=== PATIENT | male | born 1935 | race Caucasian/White ===

== ENCOUNTER 2017-01-03 10:01 | Outpatient (CLI) | payer MEDICARE, MEDICAID ==
--- NOTE | 2017-01-03 12:17 | ULT ---
THYROID ULTRASOUND: Date: 01-03-17 Comparison: None. History: 81-year-old male with decreasing thyroid hormone levels, nodule. Technique: Multiplanar grayscale sonographic imaging of the thyroid gland obtained. FINDINGS: The thyroid gland appears diffusely enlarged and heterogeneous in echotexture. The thyroid isthmus me asures 1.3 cm in AP dimension. The right lobe measures 5.1 x 2.2 x 3.8 cm and the left lobe measuring 4.9 x 3.1 x 3.9 cm. Incidental noted is made of a tiny hypoechoic nodule in the inferior aspect of the left lobe measurin g in the 5-6 mm range. No dominant thyroid nodule is evident. IMPRESSION: Enlarged heterogeneous thyroid gland with no dominant thyroid nodule seen. POS: [facility]
--- NOTE | 2017-01-03 12:48 | ULT ---
ABDOMINAL ULTRSOUND: Date: 01-03-17 Comparison: Renal ultrasound, 04-11-15 History: Renal cyst. Technique: Multiplanar grayscale sonographic imaging of the abdomen obtained. FINDINGS: The proximal abdominal aorta is obscured by bowel gas. The distal abdominal aorta demonstrates aneury smal dilatation measuring at least 4.0 cm in AP dimension. It is difficult to measure the infrarenal abdominal aorta in the transverse dimension secondary to tortuosity. The transverse dimension may be in the 5-6 cm range. Thus, CT examination is required for better assessment. Pancreas is obscured by bowel gas. The hepatic parenchyma is poorly assessed secondary to body habitus and bowel gas. Heterogeneity and increased echogenicity of the hepatic parenchyma suggests hepatocellular disease, such as steatosis. Common bile duct measures in the 5 mm range, within normal limits. The gallbladder appears surgically absent. The right kidney measures 8 cm in craniocaudal dimension, small. The renal cortex is thinned and echo genic suggesting renal medial disease. A faint hypoechoic area is seen in the midpole of the right ki dney which could represent a tiny cyst, poorly assessed on this exam. There is a questionable nonobstructing stone in the midpole of the right kidney measuring 8 mm. The spleen measures up to 10.5 cm, within normal limits. The left kidney measures 9.8 cm in craniocaudal dimension and demonstrates increased echogenicity and thinning of the cortex. There is an exophytic cyst emanating from the left midpole measuring up to 6 .0 x 6.2 x 5.3 cm, slightly smaller than on the prior examination at which time it measured up to 7.4 x 6.3 cm. Imaged urinary bladder appears grossly unremarkable. IMPRESSION: 1. Poorly assessed infrarenal abdominal aortic aneurysm. This could measure up to 5-6 cm, but the malka surement may be over-estimated secondary to tortuosity. Recommend CT examination of the abdomen and p tomasa using a CT angiogram protocol. 2. Exophytic cyst emanating from the left kidney. Code Flynn Arias made aware via phone by Dr. Simpson at 4pm 01/03/2017. POS: [facility]
== END 2017-01-03 10:02 | disposition home or self-care (01) ==
LOC: ULT 10:01
PROVIDERS: ATTEND Nurse Practitioner Family
DX: I71.4 Abdominal aortic aneurysm, without rupture (principal); R94.6 Abnormal results of thyroid function studies; N28.1 Cyst of kidney, acquired
CPT/HCPCS: 76536; 76700

== ENCOUNTER 2017-03-01 11:48 | Outpatient (CLI) | payer MEDICARE, MEDICAID | END 2017-03-01 11:49 | disposition home or self-care (01) | LOC: BICRAD 11:48 | PROVIDERS: ATTEND Internal Medicine Cardiovascular Disease | DX: J44.9 Chronic obstructive pulmonary disease, unspecified (principal); I70.90 Unspecified atherosclerosis | CPT/HCPCS: 71046 ==

== ENCOUNTER 2017-03-14 07:04 | Outpatient (CLI) | payer MEDICARE, MEDICAID ==
--- NOTE | 2017-03-14 11:54 | CT ---
CT ABDOMEN WITH AND WITHOUT CONTRAST CT PELVIS WITH AND WITHOUT CONTRAST: Date: 03/14/17 HISTORY: 81-year-old male with N20.0 calculus of kidney. Mid and lower abdominal pain. COMPARISON: Single phase CT abdomen and pelvis with contrast of 08/13/10. TECHNIQUE: IV contrast: 60 mL Isovue 370. The principal technologist performed this procedure in the following sequence, somewhat atypically: A nonco ntrast scan was initially performed without IV or oral contrast. Next, the IV contrast and oral contr ast were given, and a single venous phase scan was performed through the entire abdomen and pelvis. C oronal reconstructions of that postcontrast scan. FINDINGS: The previously demonstrated 3.0 cm aneurysm of the distal abdominal aorta has enlarged, currently malka suring 4.6 cm in anteroposterior dimension. The tortuosity of the distal abdominal aorta has become w orse such that the aortic bifurcation is located actually slightly superior and to the left, relative to the inferior, distal portion of the aneurysm. Furthermore, the degree of chronic mural thrombus h as significantly thickened within the abdominal aortic aneurysm. Again noted is the extensive, heavy atherosclerotic calcification of the entire abdominal aorta, and its branches, having become worse si nce the previous CT. Since no arterial phase scan was performed, it is difficult to evaluate the degr ee of stenosis involving these branches, including proximal common iliac arteries, bilateral proximal renal arteries, and origin of superior mesenteric artery, all of which have severe calcifications. 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 Again noted is the right hip replacement metallic hardware which causes severe streak artifact, parti ally obscuring the adjacent soft tissues and the intrapelvic contents, especially on the right side. This decreases the sensitivity for the detection of calculi in the urinary bladder and distal ureters . No definite calculus of the ureters or bladder is identified. There is no hydronephrosis. There are calcifications in the renal sinus bilaterally, at least most of which, and possibly all of which, re present atherosclerotic calcifications of branches of the bilateral renal arteries. The bilateral [place] al parenchyma has shrunk somewhat since the previous CT. There is no hydronephrosis. Again noted is t he large exophytic cyst distorting the left kidney, previously measuring 7.7 x 7.5 x 7.5 cm, and curr ently measuring approximately 6.5 x 7.0 x 6.0 cm. There is a small, exophytic, approximately 1 cm lincoln ghter cyst protruding posteriorly from the junction between the upper portion of this cyst and the le ft renal upper pole parenchyma, which has not significantly changed (axial image 41 of 98, series 4). Prior to oral contrast administration, the gastric oden appear diffusely low in attenuation, suggest ines of possible edema. Once the gastric lumen becomes more distended after oral contrast administrati on, the apparent mural thickening decreases, but the low attenuation of the oden persists. There is no gastric outlet obstruction. Previously, there was moderate dilation of the entire biliary tree due to a small obstructing lesion at the ampulla of Vater. That has resolved, such that there is current ly only mild dilation of the common duct, and minimal dilation of the intrahepatic biliary tree. Agai n noted are the cholecystectomy clips. The pancreas, spleen, and adrenals appear normal. There is a t iny amount of biliary gas in the left hepatic duct or one of its proximal branches. Again noted is th e fact that the right lobe of the liver is small. There is no hepatomegaly. The appendix and spleen a re normal. No abnormality of the small intestine is identified. No signs of acute colonic diverticuli tis or colitis. Multiple diverticula throughout the descending colon and sigmoid colon. No mural thic kening of the urinary bladder. No free fluid identified in the abdominal cavity or pelvic cavity. Wang g bases are grossly clear. There is multilevel severe degenerative disc disease through lumbar spine. IMPRESSION: 1. Interval growth of the distal abdominal aortic fusiform aneurysm, now 4.6 cm in anteroposterior d imension. 2. Interval worsening of atherosclerotic disease throughout the abdominal aorta and all of its branc hes. 3. Interval decrease in bilateral renal parenchymal volume. 4. Interval decrease in size of the previously large left renal cyst. 5. 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 6. Interval resolution of the previously demonstrated biliary obstruction. 7. Status post cholecystectomy. 8. Questionable diffuse gastric mural edema. 9. Distal colonic diverticulosis without acute diverticulitis. 10. No obstructive uropathy. 11. Advanced lumbar spondylosis. 12. Status post total right hip replacement arthroplasty. POS: [facility]
== END 2017-03-14 07:05 | disposition home or self-care (01) ==
LOC: SCSCT 07:04
PROVIDERS: ATTEND Internal Medicine Gastroenterology
DX: R10.11 Right upper quadrant pain (principal); N20.0 Calculus of kidney; I71.4 Abdominal aortic aneurysm, without rupture; I70.0 Atherosclerosis of aorta; N28.89 Other specified disorders of kidney and ureter; N28.1 Cyst of kidney, acquired; I72.3 Aneurysm of iliac artery; K83.1 Obstruction of bile duct; K57.30 Diverticulosis of large intestine without perforation or abscess without bleeding; M47.896 Other spondylosis, lumbar region; Z96.641 Presence of right artificial hip joint; Z90.49 Acquired absence of other specified parts of digestive tract
CPT/HCPCS: 74178

== ENCOUNTER 2017-12-25 08:31 | Day surgery (SDC) | payer MEDICARE, MEDICAID ==
[2017-12-24 10:01] VITALS: BMI 29.0
[2017-12-25] MEDS ORDERED: PHENYLEPHRINE-NS 100 MCG/ML 10 ML SYRINGE ONE (09:07)
[2017-12-25] MEDS ORDERED: Lidocaine 1% PF 5 ML VIAL ONE (09:07)
[2017-12-25] MEDS ORDERED: PROPOFOL 200 MG/20 ML VIAL ONE (09:07)
[2017-12-25 09:12] LABS: Hemoglobin 13.2 g/dL (14.0-18.0)
[2017-12-25 09:23] LABS: Anion Gap 11 mmol/L (10-20); BUN (Urea Nitrogen) 29 mg/dL (8.4-25.7); Calc. Creatinine Clearance 39 mL/min (70-130); Calcium 9.3 mg/dL (7.8-10.44); Carbon Dioxide 27 mmol/L (23-31); Chloride 102 mmol/L (98-107); Estimated GFR-MDRD 39; Glucose 137 mg/dL (83-110); Potassium 4.4 mmol/L (3.5-5.1); Sodium 136 mmol/L (136-145)
[2017-12-25] MEDS ORDERED: Bacitracin Zinc Ointment 30 gm TUBE ONE (10:26)
[2017-12-25] MEDS ORDERED: Lidocaine 1% w/Epinephrine 1:100K 30 ML VIAL ONE (10:26)
[2017-12-25] MEDS ORDERED: Fentanyl 100 MCG/2 ML VIAL ONE (10:37)
--- NOTE | 2017-12-25 12:45 | EKG ---
Test Reason : PREOP Blood Pressure : / mmHG Vent. Rate : 080 BPM Atrial Rate : 080 BPM P-R Int : 148 ms QRS Dur : 088 ms QT Int : 416 ms P-R-T Axes : 053 005 027 degrees QTc Int : 479 ms Normal sinus rhythm Nonspecific ST and T wave abnormality Prolonged QT Abnormal ECG When compared with ECG of 19-MAY-2015 23:56, QT has lengthened Confirmed by DR. Krysten MENSAH ([id number]) on 12/25/2017 12:44:59 PM Referred By: NIKHIL Confirmed By:DR. Krysten MENSAH
--- NOTE | 2017-12-26 11:34 | OP ---
DATE OF PROCEDURE: 12/25/2017 PREOPERATIVE DIAGNOSIS: Left face/left ear basal cell carcinoma. POSTOPERATIVE DIAGNOSIS: Left face/left ear basal cell carcinoma. PROCEDURES: Wide local excision of left face and ear basal cell carcinoma with local regional advanc ement flap greater than 4 cm. SURGEON: Brayan Gardner M.D. ESTIMATED BLOOD LOSS: 10 mL COMPLICATIONS: None. ANESTHESIA: TIVA. PROCEDURE IN DETAIL: The patient was taken to the operating room. IV anesthesia was obtained by the Anesthesia staff. Lidocaine 1% with 1:100,000 epinephrine was injected into the anticipated areas. Following this, the patient was prepped for standard procedures. A 1 cm margin was taken around the left preauricular skin basal cell carcinoma. Frozen sections were sent for pathological analysis, [facility] no involvement of malignancy. Following this, skin flap was elevated superiorly overlyin g the parotid gland and the skin was then advanced posteriorly to the remnant skin of the ear tragus. The wound was then closed using Monocryl stitches and Prolene stitches for the skin. The patient t olerated the procedure well.
--- NOTE | 2017-12-31 05:32 | PQF ---
[facility] POST DISCHARGE CLINICAL DOCUMENTATION IMPROVEMENT CLARIFICATION FORM l Todays Date: 12/31/17 l Patients Name JULIOCESAR MAYS l l Admit Date 12/25/17 l Disch Date 12/25/17 Telex Operator Name Terrell Moore Email: [email or web address] Cell: [phone] To be completed by Telex Operator: Present Clinical Indicators - Signs / Symptoms Results and Location in Medical Record [ ] Documentation of: [ ] [ ] Documentation of: [ ] [ ] Documentation of: [ ] [ ] Documentation of: [ ] [ ] Risks [ ] [ ] [ ] Treatment [ ] BASAL CELL CARCINOMA OF LEFT EAR Query for area (sq cm) of advancement flap [ ] [ ] To be completed by Physician: DELIA FREGOSO The documentation in this patients record requires clarification to ensure coding compliance and accuracy. Check the appropriate box and include in your discharge summary. [ ] [ ] [ ] [ ] Please check this box if this does not apply to this patient [ ] Unable to determine [ ] Other diagnosis: Review the following information and exercise your independent professional judgment in responding to the clarification. Based upon the clinical findings, risk factors, and treatment, please clarify if you are treating one of the above probable or suspected diagnoses. Physician Signature: Date Time MTDD
== END 2017-12-25 15:15 | disposition home or self-care (01) ==
LOC: SDC 08:31
PROVIDERS: ATTEND Otolaryngology Plastic Surgery within the Head & Neck
PROC: 0HX3XZZ Transfer Left Ear Skin, External Approach (ICD-10-PCS; principal; 2017-12-25)
PROC: 0HB3XZZ Excision of Left Ear Skin, External Approach (ICD-10-PCS; 2017-12-25)
DX: C44.219 Basal cell carcinoma of skin of left ear and external auricular canal (principal); L57.0 Actinic keratosis; L57.8 Other skin changes due to chronic exposure to nonionizing radiation; J44.9 Chronic obstructive pulmonary disease, unspecified; M16.10 Unilateral primary osteoarthritis, unspecified hip; I12.9 Hypertensive chronic kidney disease with stage 1 through stage 4 chronic kidney disease, or unspecified chronic kidney disease; N18.9 Chronic kidney disease, unspecified; I48.91 Unspecified atrial fibrillation; I48.92 Unspecified atrial flutter; G47.30 Sleep apnea, unspecified; G89.29 Other chronic pain; M54.9 Dorsalgia, unspecified; E05.00 Thyrotoxicosis with diffuse goiter without thyrotoxic crisis or storm; Z87.891 Personal history of nicotine dependence; Z86.73 Personal history of transient ischemic attack (TIA), and cerebral infarction without residual deficits; Z79.51 Long term (current) use of inhaled steroids; Z79.82 Long term (current) use of aspirin; Z79.899 Other long term (current) drug therapy
CPT/HCPCS: 36415; 80048; 85014; 85018; 88305; 88331; 93005; 93010; J2001; J2704; J3010

== ENCOUNTER 2018-04-29 07:45 | Outpatient (CLI) | payer MEDICARE, MEDICAID | END 2018-04-29 07:46 | disposition home or self-care (01) | LOC: CP 07:45 | PROVIDERS: ATTEND Nurse Practitioner Family | DX: J44.9 Chronic obstructive pulmonary disease, unspecified (principal) | CPT/HCPCS: 94060; 94727 ==

== ENCOUNTER 2018-05-30 10:11 | Outpatient (CLI) | payer MEDICARE, MEDICAID ==
--- NOTE | 2018-05-30 10:33 | RAD ---
Exam: Chest 2 views COMPARISON: 05/19/2015, 03/07/2015 HISTORY: Dyspnea FINDINGS: Atherosclerosis and slight elongation of the aorta. Cardiac silhouette. Pulmonary vessels a nd hilum are normal. Costophrenic angles are clear. Hyperinflation, with chronic changes. No mass. No consolidation. No pneumothorax or osseous abnormalities. IMPRESSION: 1. Atherosclerosis. 2. Hyperinflation with chronic changes.
== END 2018-05-30 10:12 | disposition home or self-care (01) ==
LOC: RAD 10:11
PROVIDERS: ATTEND Internal Medicine Pulmonary Disease
DX: R06.00 Dyspnea, unspecified (principal); I70.0 Atherosclerosis of aorta
CPT/HCPCS: 71046

== ENCOUNTER 2019-02-20 11:34 | Inpatient (IN) | payer MEDICARE, MEDICAID ==
[2019-02-20] MEDS ORDERED: Albuterol Sulfate 2.5 mg/3 ml Neb ONE (11:59)
[2019-02-20] MEDS ORDERED: Magnesium 2 GM/50 ML BAG (IN WATER) ONE (12:16)
[2019-02-20] MEDS ORDERED: Dexamethasone 10 MG/ML VIAL ONE (12:17)
--- NOTE | 2019-02-20 12:20 | RAD ---
EXAM: XR Chest 1 View Portable PROVIDED CLINICAL HISTORY: Shortness of breath COMPARISON: 05/30/2018 FINDINGS: Cardiac and mediastinal silhouette is within normal limits. Vascular calcification is noted involving the aortic arch. There is conspicuous left hemithoracic patchy airspace disease. Right lung appears clear. There is no pleural fluid or pneumothorax apparent. IMPRESSION: Conspicuous patchy left hemithoracic airspace disease, compatible with pneumonia in the appropriate c linical context. Follow-up is recommended.
[2019-02-20 12:25] LABS: Actual Bicarbonate (HCO3a) 19.5 mEq/L (22-28); Analyzer IN Cardio ER; CO2 Tension 28.2 mmHg (35.0-45.0); Calcium, Ionized 1.18 mmol/L (1.12-1.30); Carboxyhemoglobin (COHb) 0.9 gm% (0.0-3.0); Hemoglobin (Hb) 14.2 g/dL (14.0-18.0); Potassium - ABG Lab 3.85 mmol/L (3.70-5.30); pH, Arterial 7.46 (7.35-7.45)
[2019-02-20 12:26] LABS: Puncture Site RRA
[2019-02-20] MEDS ORDERED: cefTRIAXone\\ROCEPHIN 2 GM VIAL ONE (12:38)
[2019-02-20 13:24] LABS: Hemoglobin 14.1 g/dL (14.0-18.0); Mean Corpuscular HGB CONC 32.7 g/dL (32.0-36.0); Mean Platelet Volume 9.2 fL (7.4-10.4); Platelet Count 190 thou/uL (130-400); RBC Distribution Width 13.3 % (11.5-14.5); White Blood Cell (WBC) Count 14.6 thou/uL (4.8-10.8)
[2019-02-20 13:42] LABS: Bacteria/HPF 2+ HPF (None Seen); Bilirubin Negative (Negative); Blood, Urine Trace (Negative); Clarity Turbid (Clear); Glucose, Urine (Dipstick) Normal (Negative); Leukocyte Negative Leu/uL (Negative); Nitrite Negative (Negative); Protein, Urine (Dipstick) 100 mg/dL (Neg-Trace); Squamous Epithelial 0-3 HPF (0-3)
[2019-02-20 13:52] LABS: ALT (SGPT) 28 U/L (8-55); AST (SGOT) 26 U/L (5-34); Alkaline Phosphatase 179 U/L (40-110); Anion Gap 18 mmol/L (10-20); BUN (Urea Nitrogen) 42 mg/dL (8.4-25.7); Bilirubin, Total 2.9 mg/dL (0.2-1.2); CK (CPK) 552 U/L (30-200); Calc. Creatinine Clearance 0 mL/min (70-130); Calcium 9.9 mg/dL (7.8-10.44); Carbon Dioxide 24 mmol/L (23-31); Chloride 99 mmol/L (98-107); Estimated GFR-MDRD 24; Globulin 3.2 g/dL (2.4-3.5); Glucose 162 mg/dL (83-110); Lipase 156 U/L (8-78); Potassium 3.8 mmol/L (3.5-5.1); Protein, Total 7.2 g/dL (5.8-8.1); Sodium 137 mmol/L (136-145)
[2019-02-20] MEDS ORDERED: Norepinephrine 8 MG/0.9% NS 250 ML ONE (14:02)
[2019-02-20 14:10] LABS: CKMB 2.2 ng/mL (0-6.6)
[2019-02-20 14:13] LABS: Band 18 % (5-11); Lymphocytes 6 % (21-51); MDiff Complete? YES; Metamyelocyte 1 % (0-0); Monocytes 3 % (0-10); Neutrophil 72 % (42-75); RBC Morphology Normal
[2019-02-20] MEDS ORDERED: Aspirin 300 MG Suppository ONE (14:27)
--- NOTE | 2019-02-20 15:55 | RAD ---
XR Chest 1 View Portable History: Central line placement Comparison: Radiograph same day Findings: New right IJ central venous catheter is in place with tip at the mid SVC. No complication. Remainder the findings are similar. Impression: Uncomplicated placement right IJ central venous catheter.
[2019-02-20 16:20] LABS: INR-International Normal Ratio 1.5; Prothrombin Time 18.1 SEC (12.0-14.7)
[2019-02-20 16:21] LABS: PTT 37.8 SEC (22.9-36.1)
--- NOTE | 2019-02-20 16:22 | HP ---
HISTORY OF PRESENT ILLNESS: Mr. Grant is an 83-year-old man. He was brought to the ER earlier today because of failure to thrive, poor appetite, and increasing shortness of breath for the last 2 weeks or so. He was evaluated and was found to have pneumonia, hypotension, respiratory failure, and sepsis. He has been admitted for management. There is no fever documented. Family denies any previous fever. PAST MEDICAL HISTORY: Remarkable for hypertension and chronic kidney disease, we do not know his baseline kidney function. He has cardiomyopathy, atrial fibrillation, and COPD. PAST SURGICAL HISTORY: Remarkable for skin cancer excision, cholecystectomy, and right hip replacement. He had previous skin graft. ALLERGIES: HE DOES NOT HAVE ANY KNOWN ALLERGY. SOCIAL HISTORY: He is a former smoker. There is no history of EtOH abuse. No history of substance abuse. FAMILY HISTORY: Reviewed and is not contributory. HOME MEDICATIONS: Include: 1. Aspirin 81 mg daily. 2. Methimazole. REVIEW OF SYSTEMS: CONSTITUTIONAL: Generalized weakness, failure to thrive, poor appetite. HEENT: No headache. No ocular pain. No sore throat. No rhinorrhea. No earache. No epistaxis. NECK: No neck pain. No neck stiffness. CARDIOVASCULAR: Shortness of breath. There is no chest pain. PULMONARY: Shortness of breath along with dry cough. ENDOCRINOLOGY: No heat or cold intolerance. No polyuria, polydipsia, or polyphagia. HEMATOLOGY: No abnormal bleeding. No ecchymosis. LYMPHATICS: No palpable lymphadenopathy. No painful lymphadenopathy. SKIN: No rash. No itching. ALLERGY: No hay fever. NEUROLOGIC: No seizure. PSYCHIATRIC: No anxiety. No depression. MUSCULOSKELETAL: No arthralgia. GENITOURINARY: No dysuria. No hematuria. GASTROINTESTINAL: There is no nausea. No vomiting. No diarrhea. No abdominal pain. PHYSICAL EXAMINATION: GENERAL: At the current time, he is alert, responsive, and cooperative. He is in severe respiratory distress, currently on BiPAP. VITAL SIGNS: His latest vital signs show a temperature of 98.3, pulse rate 112, respiratory rate 34, blood pressure 99/57. HEENT: His head is normocephalic and atraumatic. Both his pupils are equal and reactive. Ears and nose are normal. Oral mucosa, he is currently on BiPAP. NECK: Supple. There is no distention of the jugular vein. No lymphadenopathy felt. Thyroid gland not palpable. There is no carotid bruit. CHEST: Symmetrical with regular S1 and S2. LUNGS: Show some rhonchi and wheezing diffusely. ABDOMEN: Soft. Bowel sounds heard. We could not appreciate any organomegaly. EXTREMITIES: Limbs show no edema. NEUROLOGIC: He moves all extremities. LABORATORY DATA: CBC shows a WBC of 14.6, hemoglobin of 14.1, hematocrit of 43.1, MCV of 98, platelet of 190. ABG was reviewed. The patient was noticed to have a pH of 7.46, pCO2 of 28, pO2 of 53, O2 saturation of 90%, base excess of -3. Chemistry and lytes show a sodium of 137, potassium 3.8, chloride 99, CO2 of 24, BUN 42, creatinine 2.54, glucose 162, lactic acid 3.6, total bilirubin 2.9, alkaline phosphatase 179, AST 26, ALT 28. Troponin was noticed to be elevated at 0.18. BNP is 387. Urinalysis was reviewed. Chest x-ray showed possible left-sided pneumonia. ASSESSMENT: This is an 83-year-old man with history of hypertension, chronic atrial fibrillation, chronic obstructive pulmonary disease, cardiomyopathy, and chronic kidney disease, who is being admitted with respiratory failure along with sepsis. Respiratory failure is due to pneumonia along with chronic obstructive pulmonary disease exacerbation. The patient will be admitted to medical ICU. Please see orders. He was noticed to have lactic acidosis. Lactic acid level will be repeated in 4 hours. He will be admitted to ICU. Further evaluation and management will depend on the course of this hospitalization and his response to therapy. Job ID: [id number]
[2019-02-20 16:41] LABS: Troponin I 0.106 ng/mL (< 0.028)
[2019-02-20] MEDS ORDERED: Heparin 10,000 UNITS/ 10 ML VIAL SLOW IVP SCH (16:45)
[2019-02-20] MEDS ORDERED: Heparin 25,000 units/D5W 500 ML IVPB SCH (16:45)
[2019-02-20] MEDS ORDERED: cefTRIAXone Sodium 1,000 MG in Syringe 0 ML IVPB SCH (17:15)
[2019-02-20 17:31] LABS: Hemoglobin 12.1 g/dL (14.0-18.0); Platelet Count 187 thou/uL (130-400)
[2019-02-20 17:46] LABS: Lactic Acid 3.8 mmol/L (0.5-2.2)
[2019-02-20] MEDS: Sodium Chloride 0.9% 1,000 ML IV SCH ×2 (17:56→20:10)
[2019-02-20] MEDS: Budesonide 0.25 MG/2 ML NEB INH SCH (18:22)
--- NOTE | 2019-02-20 18:41 | ULT ---
ULTRASOUND ABDOMEN: 02/20/19 HISTORY: Kidney failure. FINDINGS: The liver demonstrates homogeneous echotexture without focal mass or abnormal biliary ductal dilatati on. The spleen is normal measuring 9.7 cm in length. The patient is post cholecystectomy. The common duct measures 6 mm in diameter. The visualized portions of the pancreas are unremarkable. The proxima l and mid portions of abdominal aorta are not well seen. The distal aspect of the abdominal aorta dem onstrates an aneurysm measuring 5 cm in AP dimension. No hydronephrosis is seen on either side. There is a 6.6 cm cyst arising from the left kidney. The visualized portions of the IVC are unremarkable. No free fluid is seen. IMPRESSION: 1. Left renal cyst. 2. 5 cm infrarenal abdominal aortic aneurysm. POS: [facility]
[2019-02-20] MEDS ORDERED: Enoxaparin Sodium 80 MG/0.8 ML SYRINGE SC SCH (18:45)
[2019-02-20 19:03] LABS: Troponin I 0.148 ng/mL (< 0.028)
[2019-02-21] MEDS: Sodium Chloride 0.9% 1,000 ML IV SCH (05:18)
[2019-02-21 06:16] VITALS: BMI 32.6
[2019-02-21] MEDS: Budesonide 0.25 MG/2 ML NEB INH SCH ×2 (07:54→19:25)
[2019-02-21] MEDS ORDERED: FLU VACC TS2019-20(65YR UP)/PF 180 MCG/0.5 ML SYRINGE IM ONE (09:00)
[2019-02-21] MEDS ORDERED: methylPREDNISolone Sod Succ/PF 125 MG/2 ML VIAL IVP SCH (09:00)
[2019-02-21] MEDS ORDERED: Enoxaparin Sodium 30 MG/0.3 ML SYRINGE SC SCH (09:00)
[2019-02-21] MEDS ORDERED: Prevnar 13-Val Conj/PF 0.5 ML SYRINGE IM ONE (09:00)
--- NOTE | 2019-02-21 10:45 | CON ---
DATE OF CONSULTATION: HISTORY OF PRESENT ILLNESS: Mr. Grant is an 83-year-old Monegasque male with known history of chronic renal failure and was admitted for generalized malaise and low-grade fever. Chest x-ray suggested to have pneumonia. For this reason, he is being admitted. We are now being consulted for his chronic renal failure. His most recent creatinine was noted to be at 2.54, his baseline is about 1.6. He did have decreased p.o. intake. Consideration for prerenal azotemia remains. REVIEW OF SYSTEMS: Positive for low-grade fever. Positive for a cough. No chest pain. Mild shortness of breath. No syncopal episode. No nausea. No vomiting. No diarrhea. No constipation. No headache. Appetite and energy level have decreased. Decreased p.o. intake. No dysuria. MEDICATIONS: Currently on; 1. Ceftriaxone 1 g IV daily. 2. Budesonide neb treatment as needed. 3. Lovenox 30 mg subcu daily. 4. DuoNeb q.4 as needed. 5. Levaquin 750 mg IV every other day. 6. Methylprednisolone 80 mg IV daily. 7. Normal saline 100 mL/h. 8. Vancomycin p.r.n. PAST MEDICAL HISTORY: Chronic renal failure, history of atrial flutter, history of CHF with decreased EF, hyperlipidemia, COPD, DJD, status post TIA. PAST SURGICAL HISTORY: Status post right groin pseudoaneurysm repair, status post right heart ablation, status post AICD/pacemaker placement, status post cardiac cath, status post right hip replacement, status post cholecystectomy, status post colonoscopy. SOCIAL HISTORY: The patient lives alone, lives in [place]. 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 Has two children. He is currently. No history of smoking. No alcohol intake. No IV drug abuse. ALLERGIES: NONE. TRAUMA: None. IMMUNIZATION: Up-to-date. HOSPITALIZATIONS: Please see past medical history. FAMILY HISTORY: No family history of ESRD. PHYSICAL EXAMINATION: VITAL SIGNS: Blood pressure is noted at 113/61, heart rate 96, respiratory rate 33, O2 saturation 97%. GENERAL: The patient is awake, comfortable, not in overt distress. SKIN: Adequate turgor. HEENT: Pinkish conjunctivae. Anicteric sclerae. NECK: No neck mass. No carotid bruits. No JVD. CHEST: No deformities. LUNGS: Right, clear breath sounds. Left, harsh breath sounds. HEART: Normal sinus rhythm. No murmur. No gallops. No rubs. ABDOMEN: Globular, soft, and nontender. No masses. EXTREMITIES: No edema. NEUROLOGIC: Awake and oriented to 3 spheres. Moving all extremities. No tremors. No asterixis. No ataxia. LABORATORY DATA: Chest x-ray shows pneumonia. No evidence of CHF. Right lung is clear. On February 20, 2019; hemoglobin 12.1, white count was 14.6. On February 20, 2019; sodium 137, potassium 3.8, chloride 99, carbon dioxide 24, BUN 42, creatinine 2.54. On April 22, 2018, creatinine 2.11. Lactic acid is 3.6. BNP is 387. Troponin-I 0.1. Urinalysis shows specific gravity 1.019, rbc's 4 to 6, wbc's 4 to 6, no pigmented granular casts noted. ASSESSMENT AND PLAN: 1. Acute kidney injury on top of his chronic renal failure - I suspect with the decreased p.o. intake and relatively benign urine sediment that he may have a hemodynamically-mediated renal dysfunction. Agree with empiric volume repletion, currently normal saline at 100 mL/h. 2. Pneumonia, on empiric antibiotics. Currently, on Levaquin, ceftriaxone, and vancomycin. Continue supportive care. There is no indication for any dialytic intervention with this patient. Agree with current management. Job ID: [id number]
[2019-02-21] MEDS: cefTRIAXone\\ROCEPHIN 1 GM in Sodium Chloride 0.9% 100 ML IVPB SCH (11:26)
--- NOTE | 2019-02-21 12:04 | PDOC.HOSPP ---
- Subjective Encounter Date: 02/21/19 Encounter Time: 11:50 Subjective: Feels better.. - Objective Vital Signs & Weight: Vital Signs (12 hours) Temp Pulse Resp Pulse Ox 02/21/19 10:35 86 26 H 96 02/21/19 08:00 97.9 F 100 02/21/19 07:54 99 02/21/19 07:52 90 30 H 98 Weight Weight 190 lb 4.8 oz Most Recent Monitor Data Heart Rate from ECG 89 NIBP 131/62 NIBP BP-Mean 85 Respiration from ECG 33 SpO2 99 I&O: 02/20/19 02/21/19 02/22/19 06:59 06:59 06:59 Intake Total 3654 240 Output Total 900 0 Balance 2754 240 Result Diagrams: 02/20/19 17:22 02/20/19 11:53 Hospitalist ROS - Medication Medications: Active Medications Generic Name Dose Route Start Last Admin Trade Name Freq PRN Reason Stop Dose Admin Budesonide 0.25 mg 02/20/19 18:30 02/21/19 07:54 Pulmicort Neb Solution INH 0.25 mg BID-RT ARIANA Administration Ceftriaxone Sodium 1 gm/ 100 mls @ 200 mls/hr 02/21/19 12:00 02/21/19 11:26 Sodium Chloride IVPB 100 mls 1200 ARIANA Administration - Exam Neck: no JVD Heart: irregular Respiratory: rhonchi Gastrointestinal: soft Extremities: no edema Neurological: no weakness Psychiatric: normal affect Hosp A/P (1) CKD (chronic kidney disease) Code(s): N18.9 - CHRONIC KIDNEY DISEASE, UNSPECIFIED Status: Acute (2) Sepsis Code(s): A41.9 - SEPSIS, UNSPECIFIED ORGANISM Status: Acute (3) Respiratory failure Code(s): J96.90 - RESPIRATORY FAILURE, UNSP, UNSP W HYPOXIA OR HYPERCAPNIA Status: Acute (4) Atrial fibrillation Code(s): I48.91 - UNSPECIFIED ATRIAL FIBRILLATION Status: Acute (5) COPD (chronic obstructive pulmonary disease) Status: Chronic (6) Cardiomyopathy Code(s): I42.9 - CARDIOMYOPATHY, UNSPECIFIED Status: Chronic - Plan Continue antibiotics, bronchodilators, steroids.. f/u blood cultures..
[2019-02-21] MEDS ORDERED: Vancomycin HCl 1 GM in Premix Bag 1 BAG IVPB SCH (15:00)
[2019-02-21] MEDS: Heparin 5,000 UNITS/ML VIAL SC SCH ×2 (15:20→23:26)
--- NOTE | 2019-02-21 15:49 | CON ---
DATE OF CONSULTATION: 02/21/2019 SERVICE: Pulmonary Medicine. REASON FOR CONSULT: ICU patient. HISTORY OF PRESENT ILLNESS: The patient is an 83-year-old white male with past medical history significant for chronic kidney disease. He had a 5-day history of decreased appetite, nausea, no urine output, and no bowel movement. Ultimately, because of his weakness, he presented to the emergency department. He was discovered to have hypotension and given a couple of liters of fluid. He developed significant respiratory failure. He was placed on BiPAP, but based on the ABG, it is suggested that he had pure hypoxemic failure and we converted him over to high-flow nasal cannula. He was having fevers and chills. That being said, overnight, he feels profoundly better. His high-flow nasal cannula has been weaned away to just regular nasal cannula. His appetite has improved dramatically, and his blood pressures have firmed up beautifully. Otherwise, he feels like he is returning closer to his usual state of health. PAST MEDICAL HISTORY: 1. Chronic kidney disease. 2. Hypertension. 3. Cardiomyopathy. 4. Atrial fibrillation. 5. COPD. PAST SURGICAL HISTORY: 1. Excision of skin cancer. 2. Cholecystectomy. 3. Right hip replacement. 4. History of skin graft. ALLERGIES: NO KNOWN DRUG ALLERGIES. MEDICATIONS: List of his inpatient medications was reviewed. No specific updates were made at this time. SOCIAL HISTORY: He has a greater than 50 pack-year history of smoking, but quit remotely. He has no alcohol or illicit drug use. He has no exposure to chemicals, dust, asbestos, or tuberculosis. FAMILY HISTORY: Noncontributory. REVIEW OF SYSTEMS: General, head, ears, eyes, nose, throat, cardiovascular, respiratory, GI, , musculoskeletal, neurologic, and skin are negative except as mentioned in HPI. PHYSICAL EXAMINATION: VITAL SIGNS: Currently, afebrile. He did not have any temperatures overnight. Pulse 86, blood pressure 131/62, respirations 14, saturation 99% on 3 L nasal cannula currently. GENERAL: The patient is awake and alert, in no apparent distress. LUNGS: Wonderful air entry. Rhonchi are present. There is prolonged expiratory phase, but no wheezing. HEART: Normal rate, regular. ABDOMEN: Soft, nontender, nondistended. Bowel sounds are positive. MUSCULOSKELETAL: No cyanosis or clubbing. There is no pitting in the bilateral lower extremities. NEUROLOGIC: Grossly nonfocal. LABORATORY DATA: WBC 14.6, hemoglobin 12.1, which was downtrending compared to prior. This is actually closer to his baseline. Band count is 18% on top of 72 % neutrophils. D-dimer 5.01, INR 1.5. PH 7.46, pCO2 of 28, PO2 of 53. Creatinine has gently uptrended to 0.148. BNP 386 on presentation, which is close to his baseline. Lactate has improved to 3.0. Creatinine 2.54. BUN 42. Basic metabolic profile is otherwise unremarkable. Alkaline phosphatase 179. AST and ALT are unremarkable. Lipase 156, is minimally elevated. Urinalysis is essentially unremarkable. Blood cultures x2 are negative. Influenza A and B are negative. IMAGING: Abdominal ultrasound demonstrates left renal cyst and a 5 cm infrarenal abdominal aortic aneurysm. There is no abnormal biliary ductal dilation. Chest x-ray demonstrates IJ central line is in good position. Left lower lobe infiltrate is identified. ASSESSMENT: 1. Acute hypoxic respiratory failure. 2. Severe sepsis. 3. Community-acquired pneumonia. 4. Acute kidney injury on chronic kidney disease 4. DISCUSSION AND PLAN: This patient is doing absolutely fantastic. I am doubtful that he had a pulmonary embolism. That being said, we will continue watching closely. His clinical presentation is more consistent with acute infectious syndrome, and he has a left-sided infiltrate that would support that diagnosis. Additionally, he has made a profound recovery. We will minimize his IV fluids moving forward as his blood pressures have firmed up, and he can be transitioned to the floor. We will continue empiric antibiotics and put him only on prophylactic doses of heparin. Pulmonary/Critical Care will continue to follow along for the time being. We will continue his other supportive care including nebulized medications and steroids. 70 minutes have been devoted to this patient in various activities. I personally reviewed all imaging studies and laboratory data noted within this document. For fifty percent of this time, I was interacting with the patient at the bedside or coordinating care with the care team. For the remainder of the time I was immediately available to the patient in the hospital unit. Job ID: [id number] MTDD
--- NOTE | 2019-02-21 20:51 | CON ---
DATE OF CONSULTATION: HISTORY OF PRESENT ILLNESS: The patient is an 83-year-old gentleman who presented with increasing dyspnea. The patient has a previous history of cardiomyopathy. The patient most recently was in [place]. He started feeling weak. He has not been eating for several days. He presented to the emergency room markedly dyspneic. The patient denied having any chest discomfort. PAST MEDICAL HISTORY: 1. History of cardiomyopathy. 2. Chronic renal failure. 3. COPD. 4. Hypertension. PAST SURGICAL HISTORY: Cholecystectomy, and hip surgery. SOCIAL HISTORY: Former smoker. ALLERGIES: NO KNOWN DRUG ALLERGIES. MEDICATIONS: 1. Aspirin 81 daily. 2. Methimazole. PHYSICAL EXAMINATION: GENERAL: This is a well-developed gentleman, in mild distress. VITAL SIGNS: Blood pressure 115/60. NECK: No jugular venous distention. LUNGS: Coarse breath sounds in the right base. HEART: Irregular rate and rhythm. Normal S1, S2. No murmurs. ABDOMEN: Nondistended. EXTREMITIES: Showed no edema. LABORATORY DATA: His white blood cell count 14.6, hemoglobin 14.1, hematocrit 43.1, platelets 190. His sodium was 137, potassium 3.8, chloride 99, bicarbonate 24, BUN 42, creatinine 2.5, glucose 162. Troponin 0.01. BNP is 387. EKG revealed him to have sinus tachycardia with frequent PVCs, ST-T wave abnormalities suggestive of possible ischemia. Chest x-ray was showed normal heart size with possible right-sided infiltrate. IMPRESSION: 1. Respiratory failure. 2. History of cardiomyopathy. 3. Chronic renal failure. 4. Chronic obstructive pulmonary disease. 5. Hypertension. This gentleman presented with a respiratory failure and possible pneumonia. He has improved rapidly. We will order a V/Q scan to make sure there is no evidence of a pulmonary embolus since he has been on a long plane trip. We will follow this patient with you through his hospitalization. TIME: 30 minutes critical care. Job ID: [id number] MTDD
[2019-02-22 05:08] LABS: ALT (SGPT) 55 U/L (8-55); AST (SGOT) 41 U/L (5-34); Alkaline Phosphatase 170 U/L (40-110); Anion Gap 14 mmol/L (10-20); BUN (Urea Nitrogen) 62 mg/dL (8.4-25.7); Bilirubin, Direct 0.3 mg/dL (0.1-0.3); Bilirubin, Total 0.5 mg/dL (0.2-1.2); Calc. Creatinine Clearance 25 mL/min (70-130); Calcium 8.8 mg/dL (7.8-10.44); Carbon Dioxide 20 mmol/L (23-31); Chloride 106 mmol/L (98-107); Estimated GFR-MDRD 24; Glucose 270 mg/dL (83-110); Magnesium 2.2 mg/dL (1.6-2.6); Phosphorus 2.7 mg/dL (2.3-4.7); Potassium 4.2 mmol/L (3.5-5.1); Protein, Total 5.6 g/dL (5.8-8.1); Sodium 136 mmol/L (136-145)
[2019-02-22 05:13] LABS: Band 25 % (5-11); Hemoglobin 11.1 g/dL (14.0-18.0); Lymphocytes 6 % (21-51); MDiff Complete? YES; Mean Corpuscular HGB CONC 32.2 g/dL (32.0-36.0); Mean Corpuscular Hemoglobin 31.5 pg (27.0-31.0); Mean Corpuscular Volume 97.9 fL (78.0-98.0); Mean Platelet Volume 9.8 fL (7.4-10.4); Metamyelocyte 1 % (0-0); Monocytes 3 % (0-10); Neutrophil 65 % (42-75); Platelet Count 170 thou/uL (130-400); Platelet Morphology Comment Appears Adequate; RBC Distribution Width 13.2 % (11.5-14.5); Red Blood Cell (RBC) Count 3.52 mill/uL (4.70-6.10); White Blood Cell (WBC) Count 10.6 thou/uL (4.8-10.8)
[2019-02-22] MEDS: Budesonide 0.25 MG/2 ML NEB INH SCH ×2 (08:03→19:13)
[2019-02-22] MEDS ORDERED: Sodium Chloride 0.9% 10 ML ONE (08:14)
[2019-02-22] MEDS: Heparin 5,000 UNITS/ML VIAL SC SCH ×3 (09:05→20:20)
[2019-02-22] MEDS: predniSONE 20 MG TAB PO SCH (09:05)
--- NOTE | 2019-02-22 09:38 | PDOC.HOSPP ---
- Subjective Encounter Date: 02/22/19 Encounter Time: 09:15 Subjective: Feels much better. - Objective Vital Signs & Weight: Vital Signs (12 hours) Temp Pulse Resp BP BP Pulse Ox 02/22/19 08:03 93 20 02/22/19 07:45 97.4 F L 84 20 147/72 H 94 L 02/22/19 02:58 97.6 F 88 20 132/61 94 L 02/21/19 23:41 87 20 Weight Admit Weight 190 lb Weight 190 lb 4.8 oz Most Recent Monitor Data Heart Rate from ECG 89 NIBP 115/60 NIBP BP-Mean 78 Respiration from ECG 31 SpO2 98 I&O: 02/21/19 02/22/19 02/23/19 06:59 06:59 06:59 Intake Total 3654 1983 Output Total 900 0 Balance 2754 1983 Result Diagrams: 02/22/19 03:51 02/22/19 03:51 Hospitalist ROS - Medication Medications: Active Medications Generic Name Dose Route Start Last Admin Trade Name Freq PRN Reason Stop Dose Admin Albuterol/Ipratropium 3 ml 02/21/19 13:00 02/22/19 08:03 Duoneb NEB 3 ml [id number] ARIANA Administration Budesonide 0.25 mg 02/20/19 18:30 02/22/19 08:03 Pulmicort Neb Solution INH 0.25 mg BID-RT ARIANA Administration Heparin Sodium (Porcine) 5,000 units 02/21/19 15:00 02/22/19 09:05 Heparin SC 5,000 units TID ARIANA Administration Ceftriaxone Sodium 1 gm/ 100 mls @ 200 mls/hr 02/21/19 12:00 02/21/19 11:26 Sodium Chloride IVPB 100 mls 1200 ARIANA Administration Prednisone 40 mg 02/22/19 08:00 02/22/19 09:05 Prednisone PO 02/26/19 08:01 40 mg QAM-WM ARIANA Administration - Exam Neck: no JVD Heart: irregular Respiratory: CTAB Gastrointestinal: soft Extremities: no edema Neurological: no weakness Psychiatric: normal affect Hosp A/P (1) CKD (chronic kidney disease) Code(s): N18.9 - CHRONIC KIDNEY DISEASE, UNSPECIFIED Status: Acute (2) Sepsis Code(s): A41.9 - SEPSIS, UNSPECIFIED ORGANISM Status: Acute (3) Respiratory failure Code(s): J96.90 - RESPIRATORY FAILURE, UNSP, UNSP W HYPOXIA OR HYPERCAPNIA Status: Acute (4) Atrial fibrillation Code(s): I48.91 - UNSPECIFIED ATRIAL FIBRILLATION Status: Acute (5) COPD (chronic obstructive pulmonary disease) Status: Chronic (6) Cardiomyopathy Code(s): I42.9 - CARDIOMYOPATHY, UNSPECIFIED Status: Chronic - Plan Continue antibiotics, bronchodilators, steroids.. f/u blood cultures.. BxC so far negative. f/u with consultants..
--- NOTE | 2019-02-22 10:52 | PRG ---
DATE OF SERVICE: 02/22/2019 SUBJECTIVE: Mr. Grant is an 83-year-old La[place] male, who was admitted for shortness of breath secondary to pneumonia. He is on empiric IV antibiotics. We are consulted on the patient for his acute kidney injury on top of his chronic renal failure. Renal function is relatively stable. He did receive empiric volume repletion yesterday. No new complaints today. He is feeling better. He is wanting to go home. OBJECTIVE: VITAL SIGNS: Blood pressure 147/72, heart rate 84, respiratory rate 20, temperature 97.4, and pulse ox 94%. GENERAL: Awake, alert, comfortable, not in distress. SKIN: Adequate turgor. HEENT: Pinkish conjunctivae. Anicteric sclerae. NECK: No neck mass. No carotid bruits. No JVD. CHEST: No deformities. LUNGS: Decreased breath sounds. HEART: Normal sinus rhythm. No murmurs. No gallops. No rubs. ABDOMEN: Globular, soft, and nontender. No masses. EXTREMITIES: No edema. No deformities. MEDICATIONS: Medications of February 22, 2019, was reviewed. LABORATORY DATA: laboratories of February 22, 2019; sodium 136, potassium 4.2, chloride 106, carbon dioxide 20, BUN 62, creatinine 2.59, AST 41, ALT 55, albumin is 3.0. TSH 0.19. White count 10.6, hemoglobin 11.1. ASSESSMENT AND PLAN: 1. Acute kidney injury/chronic renal failure. Stable renal function. Creatinine of 2.59 is relatively unchanged compared with the last few days. Continue current management. No indication for any dialytic intervention. If renal function will further worsen in the next 24 hours, consider albumin infusion. 2. Pneumonia, clinically much improved on IV antibiotics. Doing well. Agree with current management. Recheck basic metabolic panel and CBC in a.m. Job ID: [id number]
[2019-02-22] MEDS: cefTRIAXone\\ROCEPHIN 1 GM in Sodium Chloride 0.9% 100 ML IVPB SCH (12:17)
--- NOTE | 2019-02-22 15:56 | NM ---
VQ SCAN: HISTORY: Elevated d-dimer TECHNIQUE: A ventilation/perfusion scan was performed using 11.6 mCi xenon-133 by inhalation for the ventilation study followed by the intravenous administration of 6 mCi technetium 99m-MAA for the perfusion scan. CORRELATION: Chest radiograph from 02/20/2019. FINDINGS: Fair homogeneity is noted in the tracer distribution to the lung casiano bilaterally on ventilation an d perfusion scans. No mismatched pleural-based, wedge-shaped, segmental or subsegmental perfusion defects are identified . There is tracer retention on the washout phase of the ventilation scan, compatible with COPD. IMPRESSION: Low probability for pulmonary embolism.
--- NOTE | 2019-02-22 16:03 | RAD ---
XR Chest Pa Lat STANDARD HISTORY: Elevated d-dimer. COMPARISON: 02/20/2019 FINDINGS: Right internal jugular central line remains in place. The heart size is borderline. The jessica gs are well expanded without lobar consolidation, pneumothoraces, fortino pulmonary edema or pleural effusions.
--- NOTE | 2019-02-22 20:31 | PRG ---
DATE OF SERVICE: SERVICE: Pulmonary Medicine. INTERVAL HISTORY: Patient is doing good from a respiratory standpoint. Denies any current chest discomfort, nausea, or vomiting. Currently, he is on room air since his oxygen is not actually hooked up to the [place]. Otherwise, there has been no change to his condition. He has a pain in his neck, where his IJ is. He is hoping to get that removed soon. PHYSICAL EXAMINATION: VITAL SIGNS: Afebrile, blood pressure 149/70, respirations 20, and saturation 95% on 2 L nasal cannula. GENERAL: Patient is awake and alert, in no apparent distress. LUNGS: Decent air entry with no prolonged expiratory phase or wheezing present. HEART: Normal rate, regular. ABDOMEN: Soft, nontender, and nondistended. Bowel sounds are positive. MUSCULOSKELETAL: No cyanosis or clubbing. No pitting in the bilateral lower extremities. NEUROLOGIC: Grossly nonfocal. LABORATORY DATA: WBC 10.6, hemoglobin 11.1, and platelets 170,000. Band count has increased to 25% on top of 65% neutrophils. Creatinine 2.59 and roughly stable. BUN 62. Basic metabolic profile and liver function studies are unremarkable otherwise. TSH is slightly low at 0.19. Blood cultures x2 are unremarkable. Influenza A and B are negative. IMAGING: Chest x-ray demonstrates no evidence of acute consolidating changes or pleural effusions. Minimal cephalization is present. ASSESSMENT: 1. Acute hypoxic respiratory failure. 2. Severe sepsis. 3. Community-acquired pneumonia. 4. Acute kidney injury on chronic kidney disease, 4. DISCUSSION AND PLAN: We will continue antibiotics and nebulized medications. He will need to complete a 5-day course of antibiotic directed at lung-related issues. From my perspective, we can transition these over to p.o. as his blood cultures have been negative at 48 hours. At this point, he has no further requirements for Pulmonary Critical Care opinion, and I will sign off. Please call with additional questions or concerns through time. Job ID: [id number] [facility]
[2019-02-23 04:57] LABS: Anion Gap 13 mmol/L (10-20); BUN (Urea Nitrogen) 58 mg/dL (8.4-25.7); Calc. Creatinine Clearance 28 mL/min (70-130); Calcium 9.1 mg/dL (7.8-10.44); Carbon Dioxide 23 mmol/L (23-31); Chloride 108 mmol/L (98-107); Estimated GFR-MDRD 27; Glucose 260 mg/dL (83-110); Magnesium 2.2 mg/dL (1.6-2.6); Potassium 4.6 mmol/L (3.5-5.1); Sodium 139 mmol/L (136-145)
[2019-02-23 05:36] LABS: Band 23 % (5-11); Hemoglobin 11.6 g/dL (14.0-18.0); Lymphocytes 6 % (21-51); MDiff Complete? YES; Mean Corpuscular HGB CONC 32.9 g/dL (32.0-36.0); Mean Corpuscular Hemoglobin 32.3 pg (27.0-31.0); Mean Corpuscular Volume 98.2 fL (78.0-98.0); Mean Platelet Volume 9.7 fL (7.4-10.4); Monocytes 3 % (0-10); Neutrophil 68 % (42-75); Platelet Count 175 thou/uL (130-400); RBC Distribution Width 13.4 % (11.5-14.5); Red Blood Cell (RBC) Count 3.59 mill/uL (4.70-6.10); White Blood Cell (WBC) Count 8.5 thou/uL (4.8-10.8)
[2019-02-23] MEDS: Budesonide 0.25 MG/2 ML NEB INH SCH ×2 (07:40→19:42)
--- NOTE | 2019-02-23 08:46 | HP ---
ADDENDUM: Mr. Grant was noticed to be very hypoxic with a concern for pulmonary embolism. We will check a V/Q scan. We will start PE protocol. The patient cannot get a CT angiogram at this time because of his poor kidney function. Job ID: [id number]
--- NOTE | 2019-02-23 09:07 | PRG ---
DATE OF SERVICE: 02/23/2019 SUBJECTIVE: Mr. Grant is an 83-year-old Urdu male who was admitted for respiratory distress. He was found to have pneumonia. He was also noted to be in acute kidney injury on top of his chronic renal failure. He had superimposed prerenal azotemia. IV hydration was given. There was slow improvement of the renal function. No new complaints today. No chest pain or shortness of breath. OBJECTIVE: VITAL SIGNS: Blood pressure 140/71, heart rate 79, respiratory rate is ranging from 18-30, and pulse ox 95%, temperature 97.2. GENERAL: Awake, alert, comfortable, not in distress. SKIN: Adequate turgor. HEENT: He has pinkish conjunctivae. Anicteric sclerae. NECK: No neck mass. No carotid bruits. No JVD. CHEST: No deformities. LUNGS: Decreased breath sounds. HEART: Normal sinus rhythm. No murmur. No gallops. No rubs. ABDOMEN: Globular, soft, nontender, no masses. EXTREMITIES: No edema. MEDICATIONS: Medications of February 23, reviewed. LABORATORY DATA: Labs of February 23, 2019, white count 8.5, hemoglobin 11.5, sodium 139, potassium 4.6, chloride 108, carbon dioxide 23, BUN 58, creatinine 2.34, calcium 9.1, magnesium 2.2. ASSESSMENT AND PLAN: 1. Acute kidney injury on top of his chronic renal failure, superimposed hemodynamically-mediated renal dysfunction. Slowly improving renal function. Continue current management. Encouraged patient to increase p.o. intake. No indication for any dialytic intervention. 2. Pneumonia, currently on IV antibiotics. Clinically improving. 3. Recheck basic metabolic panel and CBC in a.m. Job ID: [id number] [facility]
[2019-02-23] MEDS: Heparin 5,000 UNITS/ML VIAL SC SCH ×3 (09:49→19:57)
[2019-02-23] MEDS: predniSONE 20 MG TAB PO SCH (09:49)
--- NOTE | 2019-02-23 11:32 | PRG ---
DATE OF SERVICE: 02/23/2019 SUBJECTIVE: This 83-year-old gentleman is much better this morning, presented with febrile illness, respiratory failure, and COPD exacerbation. OBJECTIVE: VITAL SIGNS: Sats are 95% on 3 L,95%_, and blood pressure 140/71. CHEST: Decreased breath sounds. No wheezing. CARDIAC: Normal S1 and S2. Negative mass. LABORATORY DATA: Creatinine is 2.34, BUN is 58, and glucose is 260. ASSESSMENT: Chronic obstructive pulmonary disease exacerbation, bronchitis, febrile illness, cultures are all negative. PLAN: Switch him over to oral medication. Continue prednisone, neb treatment, PT. Hopefully, he can be discharged home in the next several days. Job ID: [id number] [facility]
--- NOTE | 2019-02-23 12:58 | PDOC.CPN ---
- Subjective Date: 02/23/19 Time: 12:58 Interval history: He is feeling better. No chest pain, tightness, pressure. SOB is close to baseline but not quite. - Review of Systems General: denies: fever/chills, weight/appetite/sleep changes, night sweats, fatigue Respiratory: reports: cough, shortness of breath. denies: congestion, exercise intolerance Cardiovascular: denies: chest pain, palpitation, edema, paroxysmal nocturnal dyspnea, orthopnea Gastrointestinal: denies: nausea, vomiting, diarrhea, constipation, abd pain, GI bleeding Musculoskeletal: denies: pain, tenderness, stiffness, swelling, arthritis/ arthralgias Neurological: denies: numbness, syncope, seizure, weakness - Objective Allergies/Adverse Reactions: Allergies Allergy/AdvReac Type Severity Reaction Status Date / Time No Known Allergies Allergy Verified 12/24/17 10:00 Visit Medications: Current Medications Albuterol/Ipratropium (Duoneb) 3 ml NEB [id number] [facility] Last Admin: 02/23/19 07:43 Dose: 3 ml Aspirin (Ecotrin) 81 mg PO [facility] Budesonide (Pulmicort Neb Solution) 0.25 mg INH BID-RT [facility] Last Admin: 02/23/19 07:40 Dose: 0.25 mg Heparin Sodium (Porcine) (Heparin) 5,000 units SC TID [facility] Last Admin: 02/23/19 09:49 Dose: 5,000 units Levofloxacin (Levaquin) 500 mg PO 0600 [facility] Stop: 03/01/19 06:01 Metoprolol Succinate (Toprol Xl) 25 mg PO DAILY [facility] Last Admin: 02/23/19 09:49 Dose: 25 mg Prednisone (Prednisone) 40 mg PO [facility] Stop: 02/26/19 08:01 Last Admin: 02/23/19 09:49 Dose: 40 mg Vital Signs & Weight: Vital Signs Temp Pulse Pulse Pulse Resp BP BP 02/23/19 10:38 86 87 103/59 L 136/61 02/23/19 08:00 97.2 F L 79 30 H 02/23/19 07:40 90 18 02/23/19 03:56 97.5 F L 82 20 BP Pulse Ox Pulse Ox Pulse Ox 02/23/19 10:38 94 L 95 02/23/19 08:00 140/71 95 02/23/19 07:40 96 02/23/19 03:56 136/69 94 L Admit Weight 190 lb Weight 189 lb 7 oz - Physical Exam General: alert & oriented x3 HEENT: mucus membranes moist Neck: supple neck Cardiac: irregularly regular Lungs: decreased breath sounds Neuro: grossly intact Abdomen: active bowel sounds Extremities: no edema Skin: clear Musculoskeletal: no pain - Labs Result Diagrams: 02/23/19 04:12 02/23/19 04:12 Troponin/CKMB CK-MB (CK-2) 2.2 ng/mL (0-6.6) 02/20/19 12:10 Troponin I 0.148 ng/mL (< 0.028) H 02/20/19 18:17 - Telemetry Sinus rhythms and dysrhythmias: sinus rhythm - Assessment/Plan Assessment/Plan: 1. COPD 2. Non sustained VT 3. Non sustained SVT/MAT 4. Non ischemic CM, normalized EF on last echo 2016 5. Hx of atrial flutter s/p ablation. PLAn: - Will repeat echo., - BB only for NS VT and NS SVT. - Will likely need some level of rehab.
--- NOTE | 2019-02-23 14:32 | PDOC.HOSPP ---
- Subjective Encounter Date: 02/23/19 Encounter Time: 10:45 Subjective: pt up in bed feels sob. will continue neb/steroids and abx. - Objective Vital Signs & Weight: Vital Signs (12 hours) Temp Pulse Pulse Pulse Resp BP BP 02/23/19 12:00 97.4 F L 84 18 02/23/19 10:38 86 87 103/59 L 136/61 02/23/19 08:00 97.2 F L 79 30 H 02/23/19 07:40 90 18 02/23/19 03:56 97.5 F L 82 20 BP BP Pulse Ox Pulse Ox Pulse Ox 02/23/19 12:00 133/73 94 L 02/23/19 10:38 94 L 95 02/23/19 08:00 140/71 95 02/23/19 07:40 96 02/23/19 03:56 136/69 94 L Weight Admit Weight 190 lb Weight 189 lb 7 oz Most Recent Monitor Data Heart Rate from ECG 89 NIBP 115/60 NIBP BP-Mean 78 Respiration from ECG 31 SpO2 98 I&O: 02/22/19 02/23/19 02/24/19 06:59 06:59 06:59 Intake Total 1983 1270 Output Total 0 1525 Balance 1983 -255 Result Diagrams: 02/24/19 04:20 02/25/19 04:30 Hospitalist ROS - Review of Systems Respiratory: reports: shortness of breath Cardiovascular: denies: chest pain, palpitations, orthopnea, paroxysmal noc. dyspnea, edema, light headedness, other Gastrointestinal: denies: nausea, vomiting, abdominal pain, diarrhea, constipation, melena, hematochezia, other Genitourinary: denies: dysuria, frequency, incontinence, hematuria, retention, other - Medication Medications: Active Medications Generic Name Dose Route Start Last Admin Trade Name Freq PRN Reason Stop Dose Admin Albuterol/Ipratropium 3 ml 02/21/19 13:00 02/23/19 07:43 Duoneb NEB 3 ml [id number] ARIANA Administration Budesonide 0.25 mg 02/20/19 18:30 02/23/19 07:40 Pulmicort Neb Solution INH 0.25 mg BID-RT ARIANA Administration Heparin Sodium (Porcine) 5,000 units 02/21/19 15:00 02/23/19 09:49 Heparin SC 5,000 units TID ARIANA Administration Metoprolol Succinate 25 mg 02/23/19 09:00 02/23/19 09:49 Toprol Xl PO 25 mg DAILY ARIANA Administration Prednisone 40 mg 02/22/19 08:00 02/23/19 09:49 Prednisone PO 02/26/19 08:01 40 mg QAM-WM ARIANA Administration - Exam Neck: negative: supple, symmetric, no JVD, no thyromegaly, no lymphadenopathy, no carotid bruit, JVD Heart: negative: RRR, no murmur, no gallops, no rubs, normal peripheral pulses, irregular, diminshed peripheral pulses, murmur present, II/IV, III/IV Respiratory: rhonchi Gastrointestinal: negative: soft, non-tender, non-distended, normal bowel sounds , no palpable masses, no hepatomegaly, no splenomegaly, no bruit, no guarding, no rigidity, tender to palpation, distended, diminished bowl sounds, voluntary guarding Hosp A/P (1) Sepsis Code(s): A41.9 - SEPSIS, UNSPECIFIED ORGANISM Status: Acute (2) CKD (chronic kidney disease) Code(s): N18.9 - CHRONIC KIDNEY DISEASE, UNSPECIFIED Status: Acute (3) Hypertension Code(s): I10 - ESSENTIAL (PRIMARY) HYPERTENSION Status: Chronic
[2019-02-24 05:28] LABS: Phosphorus 2.5 mg/dL (2.3-4.7)
[2019-02-24 05:31] LABS: Anion Gap 14 mmol/L (10-20); BUN (Urea Nitrogen) 52 mg/dL (8.4-25.7); Calc. Creatinine Clearance 30 mL/min (70-130); Carbon Dioxide 26 mmol/L (23-31); Chloride 105 mmol/L (98-107); Estimated GFR-MDRD 29; Glucose 356 mg/dL (83-110); Magnesium 2.2 mg/dL (1.6-2.6); Potassium 4.8 mmol/L (3.5-5.1); Sodium 140 mmol/L (136-145)
[2019-02-24 05:54] LABS: Band 6 % (5-11); Hemoglobin 10.9 g/dL (14.0-18.0); Lymphocytes 6 % (21-51); MDiff Complete? YES; Mean Corpuscular HGB CONC 33.2 g/dL (32.0-36.0); Mean Corpuscular Hemoglobin 32.4 pg (27.0-31.0); Mean Corpuscular Volume 97.6 fL (78.0-98.0); Mean Platelet Volume 9.5 fL (7.4-10.4); Monocytes 4 % (0-10); Myelocyte 1 % (0-0); Neutrophil 83 % (42-75); Platelet Count 158 thou/uL (130-400); RBC Distribution Width 13.4 % (11.5-14.5); Red Blood Cell (RBC) Count 3.36 mill/uL (4.70-6.10); White Blood Cell (WBC) Count 5.7 thou/uL (4.8-10.8)
[2019-02-24] MEDS: Budesonide 0.25 MG/2 ML NEB INH SCH ×2 (08:35→19:15)
[2019-02-24] MEDS ORDERED: Methimazole 10 MG TAB PO SCH (09:00)
[2019-02-24] MEDS: Aspirin 81 mg Enteric Coated Tablet PO SCH (09:20)
[2019-02-24] MEDS: Heparin 5,000 UNITS/ML VIAL SC SCH ×3 (09:20→21:18)
[2019-02-24] MEDS: predniSONE 20 MG TAB PO SCH (09:20)
--- NOTE | 2019-02-24 09:30 | PRG ---
DATE OF SERVICE: 02/24/2019 SUBJECTIVE: Mr. Grant is an 83-year-old Tajik male who was admitted for shortness of breath secondary to pneumonia. We were consulted for his acute kidney injury on top of his chronic renal failure. Empiric volume repletion was given. He has also been evaluated by Pulmonary and Cardiology. Recommendation by Cardiology for atrial fibrillation is a conservative management. No other complaints today. No chest pain or shortness of breath. OBJECTIVE: VITAL SIGNS: Blood pressure 143/72, heart rate 70, respiratory rate 20, pulse ox 98%, and temperature 97.1. GENERAL: Awake, alert, and comfortable, not in distress. SKIN: Adequate turgor. HEENT: Pinkish conjunctivae. Anicteric sclerae. NECK: No neck mass. No carotid bruits. No JVD. CHEST: No deformities. LUNGS: Clear breath sounds. HEART: Normal sinus rhythm. No murmurs. No gallops. No rubs. ABDOMEN: Globular, soft, and nontender. No masses. EXTREMITIES: No edema. No deformities. MEDICATIONS: Medications of February 24, 2019 were reviewed. LABORATORY DATA: Laboratories of February 24, 2019; potassium 4.8, sodium 140, chloride 105, carbon dioxide 26, BUN 52, creatinine 2.19, glucose 356, calcium 9, phosphorus 2.2. White count 5.7 and hemoglobin 10.9. ASSESSMENT AND PLAN: 1. Acute kidney injury on top of his chronic renal failure, superimposed hemodynamically-mediated renal dysfunction, much improved with empiric volume repletion. 2. Pneumonia, currently on antibiotics. 3. Chronic atrial fibrillation-Cardiology is following. Continue supportive and conservative management. 4. Recheck basic metabolic and CBC in a.m. Job ID: [id number]
--- NOTE | 2019-02-24 10:56 | PRG ---
DATE OF SERVICE: 02/24/2019 SUBJECTIVE: This 83-year-old gentleman this morning is up walking with a walker. OBJECTIVE: VITAL SIGNS: Temperature is 97, pulse rate 77, respiratory rate 22, sats are 100% on 2 L, and blood pressure 140/72, baseline. GENERAL: No shortness of breath, coughing, or wheezing. CHEST: No wheezing or crackles. CARDIAC: Normal S1 and S2. ABDOMEN: Soft, no masses. LABORATORY DATA: Creatinine is 2.19, probably baseline. ASSESSMENT: Chronic obstructive pulmonary disease exacerbation, bronchitis, encephalopathy , and renal failure. PLAN: He is stable to be discharged home any time. Follow up with Dr. Curtis in the office in about a month. Job ID: [id number] MTDD
--- NOTE | 2019-02-24 12:42 | PDOC.CPN ---
- Subjective Date: 02/24/19 Time: 12:40 Interval history: He is doing very well. He denies any chest pain, tightness, pressure, SOB. Breathing is at baseline. - Review of Systems General: denies: fever/chills, weight/appetite/sleep changes, night sweats, fatigue Respiratory: denies: cough, congestion, shortness of breath, exercise intolerance Cardiovascular: denies: chest pain, palpitation, edema, paroxysmal nocturnal dyspnea, orthopnea Gastrointestinal: denies: nausea, vomiting, diarrhea, constipation, abd pain, GI bleeding Musculoskeletal: denies: pain, tenderness, stiffness, swelling, arthritis/ arthralgias Neurological: denies: numbness, syncope, seizure, weakness - Objective Allergies/Adverse Reactions: Allergies Allergy/AdvReac Type Severity Reaction Status Date / Time No Known Allergies Allergy Verified 12/24/17 10:00 Visit Medications: Current Medications Albuterol/Ipratropium (Duoneb) 3 ml NEB [id number] [facility] Last Admin: 02/24/19 08:36 Dose: 3 ml Aspirin (Ecotrin) 81 mg PO [facility] Last Admin: 02/24/19 09:20 Dose: 81 mg Budesonide (Pulmicort Neb Solution) 0.25 mg INH BID-RT [facility] Last Admin: 02/24/19 08:35 Dose: 0.25 mg Heparin Sodium (Porcine) (Heparin) 5,000 units SC TID [facility] Last Admin: 02/24/19 09:20 Dose: 5,000 units Levofloxacin (Levaquin) 500 mg PO 0600 [facility] Stop: 03/01/19 06:01 Last Admin: 02/24/19 06:08 Dose: 500 mg Metoprolol Succinate (Toprol Xl) 25 mg PO DAILY [facility] Last Admin: 02/24/19 09:20 Dose: 25 mg Prednisone (Prednisone) 20 mg PO [facility] Stop: 03/01/19 08:01 Vital Signs & Weight: Vital Signs Temp Pulse Resp BP Pulse Ox 02/24/19 11:38 97.5 F L 98 18 140/67 95 02/24/19 08:35 77 20 98 02/24/19 06:51 97.1 F L 70 28 H 143/72 H 96 02/24/19 04:00 96.8 F L 86 20 143/69 H 92 L 02/24/19 00:42 104 H 24 H 99 Admit Weight 190 lb Weight 189 lb 8 oz - Physical Exam General: alert & oriented x3 HEENT: mucus membranes moist Neck: supple neck Cardiac: regular rate and rhythm Lungs: decreased breath sounds Neuro: grossly intact Abdomen: active bowel sounds Extremities: no edema Skin: clear Musculoskeletal: no pain - Labs Result Diagrams: 02/24/19 04:20 02/24/19 04:20 Troponin/CKMB CK-MB (CK-2) 2.2 ng/mL (0-6.6) 02/20/19 12:10 Troponin I 0.148 ng/mL (< 0.028) H 02/20/19 18:17 - Telemetry Sinus rhythms and dysrhythmias: sinus rhythm - Assessment/Plan Assessment/Plan: 1. COPD 2. Non sustained VT 3. Non sustained SVT/MAT 4. Non ischemic CM, normalized EF on last echo 2016 5. Hx of atrial flutter s/p ablation. PLAn: - EF remains normal. - BB only for NS VT and NS SVT. - Discharge any time form cardiac perspective. Likely home with PT.
[2019-02-25 05:37] LABS: Anion Gap 11 mmol/L (10-20); BUN (Urea Nitrogen) 43 mg/dL (8.4-25.7); Calc. Creatinine Clearance 35 mL/min (70-130); Calcium 9.2 mg/dL (7.8-10.44); Carbon Dioxide 29 mmol/L (23-31); Chloride 103 mmol/L (98-107); Estimated GFR-MDRD 34; Glucose 309 mg/dL (83-110); Potassium 4.9 mmol/L (3.5-5.1); Sodium 138 mmol/L (136-145)
[2019-02-25] MEDS: Budesonide 0.25 MG/2 ML NEB INH SCH (07:34)
[2019-02-25] MEDS: Aspirin 81 mg Enteric Coated Tablet PO SCH (07:42)
[2019-02-25] MEDS: Heparin 5,000 UNITS/ML VIAL SC SCH ×2 (07:42→14:26)
[2019-02-25] MEDS ORDERED: predniSONE 20 MG TAB PO SCH (08:00)
--- NOTE | 2019-02-25 09:24 | PRG ---
DATE OF SERVICE: 02/25/2019 OBJECTIVE: VITAL SIGNS: His temperature is 98, pulse rate 77, respiratory rate 20, sats are 95% on 2 L, and blood pressure 140/74. CHEST: No wheezing or crackles. CARDIAC: Normal S1 and S2. No gallops. ABDOMEN: No masses. LABORATORY DATA: Baseline creatinine 1.87. Glucose 309. ASSESSMENT: Chronic obstructive pulmonary disease, renal failure, and decondition. PLAN: Probably ready to be discharged home. Apparently, he is qualified for home O2. Job ID: [id number]
--- NOTE | 2019-02-25 09:58 | PRG ---
DATE OF SERVICE: 02/25/2019 SUBJECTIVE: Mr. Grant is an 83-year-old white male, who was admitted for shortness of breath secondary to pneumonia. He was seen by the Renal Service for his acute kidney injury on top of his chronic renal failure. He had a superimposed hemodynamically-mediated renal dysfunction, which has improved with IV hydration. He is wanting to go home today. He denies any worsening shortness of breath or having any chest pain. OBJECTIVE: VITAL SIGNS: Blood pressure is 148/78, heart rate 87, respiratory rate 20, temperature 98.4, pulse ox 94%. GENERAL: Noted to be awake, alert, comfortable, not in distress. SKIN: Adequate turgor. HEENT: He has pinkish conjunctivae. Anicteric sclerae. NECK: No neck mass. No carotid bruits. No JVD. CHEST: No deformities. LUNGS: Clear breath sounds. HEART: Normal sinus rhythm. No murmur. No gallops. No rubs. ABDOMEN: Globular, soft, and nontender. No masses. EXTREMITIES: No edema. No deformities. MEDICATIONS: Medications of February 25, 2019, were reviewed. LABORATORY DATA: Laboratories of February 25, 2019: Sodium 138, potassium 4.9, chloride 103, carbon dioxide 29, BUN 43, creatinine 1.87, glucose 309, calcium 9.2. February 24, 2019; white count 5.7, hemoglobin 10.9. ASSESSMENT AND PLAN: 1. Acute kidney injury on top of his chronic renal failure and superimposed prerenal azotemia. Much improved with volume hydration. No indication for any dialytic intervention. Continue current management. 2. Pneumonia, clinically much improved. Pulmonary is following. Continue supportive care and recheck basic metabolic profile and CBC in a.m. Job ID: [id number]
[2019-02-25 16:06] VITALS: BP 134/73; TEMP 97.6
--- NOTE | 2019-02-25 17:08 | PDOC.HOSPP ---
- Subjective Encounter Date: 02/24/19 Encounter Time: 10:15 Subjective: pt up in bed feels well. - Objective Vital Signs & Weight: Vital Signs (12 hours) Temp Pulse Pulse Pulse Resp BP BP 02/25/19 16:00 97.6 F 98 16 02/25/19 13:26 95 20 02/25/19 11:05 97.7 F 87 18 02/25/19 10:01 82 86 147/79 H 139/73 02/25/19 07:33 93 20 02/25/19 07:32 98.4 F 87 20 BP Pulse Ox 02/25/19 16:00 134/73 93 L 02/25/19 13:26 02/25/19 11:05 127/65 97 02/25/19 10:01 02/25/19 07:33 02/25/19 07:32 148/78 H 94 L Weight Admit Weight 190 lb Weight 187 lb 4.8 oz Most Recent Monitor Data Heart Rate from ECG 89 NIBP 115/60 NIBP BP-Mean 78 Respiration from ECG 31 SpO2 98 I&O: 02/24/19 02/25/19 02/26/19 06:59 06:59 06:59 Intake Total 660 1200 Output Total 790 1150 Balance -130 50 Result Diagrams: 02/24/19 04:20 02/25/19 04:30 Hospitalist ROS - Review of Systems Respiratory: denies: cough, dry, shortness of breath, hemoptysis, SOB with excertion, pleuritic pain, sputum, wheezing, other Cardiovascular: denies: chest pain, palpitations, orthopnea, paroxysmal noc. dyspnea, edema, light headedness, other Gastrointestinal: denies: nausea, vomiting, abdominal pain, diarrhea, constipation, melena, hematochezia, other - Medication Medications: Active Medications Generic Name Dose Route Start Last Admin Trade Name Freq PRN Reason Stop Dose Admin Albuterol/Ipratropium 3 ml 02/21/19 13:00 02/25/19 13:26 Duoneb NEB 3 ml [id number] [facility] Administration Aspirin 81 mg 02/24/19 09:00 02/25/19 07:42 Ecotrin PO 81 mg QAM [facility] Administration Budesonide 0.25 mg 02/20/19 18:30 02/25/19 07:34 Pulmicort Neb Solution INH 0.25 mg BID-RT [facility] Administration Heparin Sodium (Porcine) 5,000 units 02/21/19 15:00 02/25/19 14:26 Heparin SC 5,000 units TID [facility] Administration Levofloxacin 500 mg 02/24/19 06:00 02/25/19 05:16 Levaquin PO 03/01/19 06:01 500 mg 0600 [facility] Administration Metoprolol Succinate 25 mg 02/23/19 09:00 02/25/19 07:42 Toprol Xl PO 25 mg DAILY [facility] Administration Prednisone 20 mg 02/25/19 08:00 02/25/19 07:42 Prednisone PO 03/01/19 08:01 20 mg QAM-WM [facility] Administration - Exam Neck: negative: supple, symmetric, no JVD, no thyromegaly, no lymphadenopathy, no carotid bruit, JVD Heart: negative: RRR, no murmur, no gallops, no rubs, normal peripheral pulses, irregular, diminshed peripheral pulses, murmur present, II/IV, III/IV Respiratory: negative: CTAB, no wheezes, no rales, no ronchi, normal chest expansion, no tachypnea, normal percussion, rales, rhonchi, tachypneic, wheezes Gastrointestinal: negative: soft, non-tender, non-distended, normal bowel sounds , no palpable masses, no hepatomegaly, no splenomegaly, no bruit, no guarding, no rigidity, tender to palpation, distended, diminished bowl sounds, voluntary guarding Hosp A/P (1) Sepsis Code(s): A41.9 - SEPSIS, UNSPECIFIED ORGANISM Status: Acute (2) CKD (chronic kidney disease) Code(s): N18.9 - CHRONIC KIDNEY DISEASE, UNSPECIFIED Status: Acute (3) Hypertension Code(s): I10 - ESSENTIAL (PRIMARY) HYPERTENSION Status: Chronic (4) COPD (chronic obstructive pulmonary disease) Status: Chronic (5) Chronic renal disease Code(s): N18.9 - CHRONIC KIDNEY DISEASE, UNSPECIFIED Status: Chronic - Plan pt walked will need oxygen. will continue steroids/nebs and abx.
--- NOTE | 2019-02-25 17:56 | PDOC.CPN ---
- Subjective Date: 02/25/19 Time: 17:53 Interval history: No new issues, No angina. Breathing at baseline. - Review of Systems General: denies: fever/chills, weight/appetite/sleep changes, night sweats, fatigue Respiratory: denies: cough, congestion, shortness of breath, exercise intolerance Cardiovascular: denies: chest pain, palpitation, edema, paroxysmal nocturnal dyspnea, orthopnea Gastrointestinal: denies: nausea, vomiting, diarrhea, constipation, abd pain, GI bleeding Musculoskeletal: denies: pain, tenderness, stiffness, swelling, arthritis/ arthralgias Neurological: denies: numbness, syncope, seizure, weakness - Objective Allergies/Adverse Reactions: Allergies Allergy/AdvReac Type Severity Reaction Status Date / Time No Known Allergies Allergy Verified 12/24/17 10:00 Visit Medications: Current Medications Albuterol/Ipratropium (Duoneb) 3 ml NEB [id number] [facility] Last Admin: 02/25/19 13:26 Dose: 3 ml Aspirin (Ecotrin) [address] [facility] Last Admin: 02/25/19 07:42 Dose: 81 mg Budesonide (Pulmicort Neb Solution) 0.25 mg INH BID-RT [facility] Last Admin: 02/25/19 07:34 Dose: 0.25 mg Heparin Sodium (Porcine) (Heparin) 5,000 units SC TID [facility] Last Admin: 02/25/19 14:26 Dose: 5,000 units Levofloxacin (Levaquin) 500 mg PO 0600 [facility] Stop: 03/01/19 06:01 Last Admin: 02/25/19 05:16 Dose: 500 mg Metoprolol Succinate (Toprol Xl) 25 mg PO DAILY [facility] Last Admin: 02/25/19 07:42 Dose: 25 mg Prednisone (Prednisone) 20 mg PO QA[facility] Stop: 03/01/19 08:01 Last Admin: 02/25/19 07:42 Dose: 20 mg Vital Signs & Weight: Vital Signs Temp Pulse Pulse Pulse Resp BP BP 02/25/19 16:00 97.6 F 98 16 02/25/19 13:26 95 20 02/25/19 11:05 97.7 F 87 18 02/25/19 10:01 82 86 147/79 H 139/73 02/25/19 07:33 93 20 02/25/19 07:32 98.4 F 87 20 BP Pulse Ox 02/25/19 16:00 134/73 93 L 02/25/19 13:26 02/25/19 11:05 127/65 97 02/25/19 10:01 02/25/19 07:33 02/25/19 07:32 148/78 H 94 L Admit Weight 190 lb Weight 187 lb 4.8 oz - Physical Exam General: alert & oriented x3 HEENT: mucus membranes moist Neck: supple neck Cardiac: regular rate and rhythm Lungs: decreased breath sounds Neuro: grossly intact Abdomen: active bowel sounds Extremities: no edema Skin: clear Musculoskeletal: no pain - Labs Result Diagrams: 02/24/19 04:20 02/25/19 04:30 Troponin/CKMB CK-MB (CK-2) 2.2 ng/mL (0-6.6) 02/20/19 12:10 Troponin I 0.148 ng/mL (< 0.028) H 02/20/19 18:17 - Telemetry Sinus rhythms and dysrhythmias: sinus rhythm - Assessment/Plan Assessment/Plan: 1. COPD 2. Non sustained VT 3. Non sustained SVT/MAT 4. Non ischemic CM, normalized EF on last echo 2016 5. Hx of atrial flutter s/p ablation. PLAN: - EF remains normal. - BB only for NS VT and NS SVT. - Discharge any time form cardiac perspective. - Follow up in the office in 2 months.
--- NOTE | 2019-02-25 21:20 | DIS ---
DATE OF ADMISSION: 02/20/2019 DATE OF DISCHARGE: 02/25/2019 DISCHARGE DIAGNOSES: 1. Sepsis. 2. Chronic kidney disease stage 3. 3. Hypertension. 4. Ventricular tachycardia in the hospital. 5. Chronic obstructive pulmonary disease, acute exacerbation. 6. Acute respiratory failure, hypoxic. HOSPITAL COURSE: The patient is an 83-year-old male who initially presented to the hospital 02/20, with complaints of shortness of breath. The patient at this time was found to be hypotensive and there was concern for possible pneumonia. He was initially admitted into the IMCU for closer monitoring. The patient was initially diagnosed with possible left-sided infiltrate, severe sepsis; however, he was initially started on empiric antibiotic, which was then transitioned to oral. He was seen by various consultants including Nephrology, Cardiology, and Pulmonology. The patient underwent an abdominal ultrasound, which indicated left renal cysts and 5 cm infrarenal abdominal aortic aneurysm. The patient continued to improve through the hospital stay. He is a smoker 3-pack a day for many years, which he quit many years ago. The patient was put initially on IV steroids with IV antibiotics which were transitioned to oral steroids and oral antibiotics. The patient was ambulated. He did drop his sats and he will be going home with oxygen. He does also have nebulizer and has medications for that. He did have an echocardiogram in the hospital; however, I do not have the results for that. His echo has normalized EF on last echo in 2017, this is per cardiology's note. I recommended beta karis and to be discharged home with home PT. HOME MEDICATIONS: He is going to go home with: 1. Levaquin 500 mg daily. 2. Metoprolol 25 mg daily. 3. Spiriva 18 mcg daily. 4. Prednisone taper. 5. Aspirin 81 mg daily. PHYSICAL EXAMINATION: VITAL SIGNS: Temperature 97.6, pulse 98, respirations 16, 93% on 2 L, blood pressure 134/73. GENERAL: He is awake, alert, and oriented x3. Does not appear in any distress. CV: S1 and S2 present. No murmurs, rubs, or gallops. LUNGS: Clear to auscultation. No rhonchi or wheezes noted, but there are diminished breath sounds. ABDOMEN: Obese, bowel sounds are present x2. EXTREMITIES: No edema. DISCHARGE INSTRUCTIONS: Again, he will be discharged home. He will follow up with Pulmonology and with Cardiology. He has been made aware that he does have an infrarenal aneurysm. Also, his creatinine improved to 1.87. Job ID: [id number]
== END 2019-02-25 19:05 | disposition home or self-care (01) | DRG 871 ==
LOC: ERS 11:34 → CCU 17:11 → 2NO 02-21 14:49
PROVIDERS: ADMIT Hospitalist; ATTEND Hospitalist
DX: A41.9 Sepsis, unspecified organism (principal); J18.9 Pneumonia, unspecified organism; J96.01 Acute respiratory failure with hypoxia; J44.0 Chronic obstructive pulmonary disease with (acute) lower respiratory infection; I48.20 Chronic atrial fibrillation, unspecified; J44.1 Chronic obstructive pulmonary disease with (acute) exacerbation; I13.0 Hypertensive heart and chronic kidney disease with heart failure and stage 1 through stage 4 chronic kidney disease, or unspecified chronic kidney disease; N17.9 Acute kidney failure, unspecified; N18.4 Chronic kidney disease, stage 4 (severe); I42.8 Other cardiomyopathies; I47.2 Ventricular tachycardia; G93.40 Encephalopathy, unspecified; E87.2 Acidosis; I50.32 Chronic diastolic (congestive) heart failure; I47.1 Supraventricular tachycardia; R65.20 Severe sepsis without septic shock; R62.7 Adult failure to thrive; F17.210 Nicotine dependence, cigarettes, uncomplicated; E78.5 Hyperlipidemia, unspecified; Z96.641 Presence of right artificial hip joint; M19.90 Unspecified osteoarthritis, unspecified site; Z90.49 Acquired absence of other specified parts of digestive tract; Z79.82 Long term (current) use of aspirin; Z79.899 Other long term (current) drug therapy; Z86.73 Personal history of transient ischemic attack (TIA), and cerebral infarction without residual deficits; Z68.32 Body mass index [BMI] 32.0-32.9, adult; I71.4 Abdominal aortic aneurysm, without rupture; Z95.810 Presence of automatic (implantable) cardiac defibrillator
CPT/HCPCS: 36415; 36556; 51701; 71045; 71046; 78582; 80048; 80053; 80076; 81003; 81015; 82550; 82553; 82805; 83605; 83690; 83735; 83880; 84100; 84443; 84484; 85025; 85379; 85610; 85730; 87040; 87804; 93005; 93306; 93975; 94640; 94644; 94660; 96361; 96365; 96366; 96367; 96375; 99292; A9540; A9558; J0696; J1100; J1644; J1650; J1956; J2930; J3370; J3475; J3490; J7512; J7611; J7620; J7626

== ENCOUNTER 2019-08-19 10:08 | Outpatient (CLI) | payer MEDICARE, MEDICAID ==
--- NOTE | 2019-08-19 12:51 | CT ---
CTA ABDOMEN AND PELVIS WITH AND WITHOUT IV CONTRAST: Date: 08/19/2019 INDICATION: Follow-up abdominal aortic aneurysm. COMPARISON: Prior CT of the abdomen and pelvis with and without contrast dated 03/14/2017. TECHNIQUE: Multiple CTA images were obtained of the abdomen and pelvis with and without IV contrast utilizing IV contrast and 3D reformatted imaging. FINDINGS: There are coronary artery and thoracic aortic calcifications. Lung bases are clear. Gallbladder surgically absent. There is slight nodular contour of the liver suggesting mild underlying cirrhotic change. The pancreas and adrenal glands are normal appearing. There is prominent renal cortical thinning involving both kidneys. 7.0 cm cyst involving the lateral margin of the left kidney is similar appearing. Subcentimeter cyst involving the superior pole of the left kidney is similar appearing. There is a tiny nonobstructing calculus in the superior pole of th e right kidney measuring 2.0 mm. No free fluid or enlarged lymph nodes are evident. The prostate is enlarged. The unopacified large and small bowel demonstrate scattered color diverticula, but are of normal diam eter. There is a normal appendix in the right lower quadrant. There is right total hip arthroplasty in place. There is scattered degenerative and osteoarthritic ch dillan. The aneurysmal dilatation involving the distal abdominal aorta has enlarged, now measuring 5.9 x 7.9 cm, where previously the aneurysmal dilatation measured 4.6 x 6.9 cm. The infrarenal abdominal aorta just proximal to this larger aneurysm measures 4.5 cm, which is slightly more prominent where it jeannette ured 4.4 cm on the prior exam. The aorta at the level of the renal arteries is 2.6 cm. Suprarenal abd ominal aorta measured 2.9 cm. The common iliac arteries are patent. 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 There is stable severe narrowing involving the renal arteries bilaterally. There is moderate narrowin g involving the celiac artery. There is mild narrowing involving the proximal SMA. The ANANT is patent. IMPRESSION: 1. Worsening aneurysmal dilatation of the distal abdominal aorta, now measuring up to 5.9 cm greates t AP dimension. 2. 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 3. 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 4. Mild narrowing involving the SMA. 5. Findings of mild cirrhosis of the liver. 6. Left renal cysts. 7. Right nephrolithiasis. 8. Colonic diverticulosis. POS: [facility]
[2019-08-19] MEDS ORDERED: Iopamidol 370 76% 50 ML VIAL FS ONE (16:29)
== END 2019-08-19 10:09 | disposition home or self-care (01) ==
LOC: BICCT 10:08 → CT 10:09
PROVIDERS: ATTEND Internal Medicine Cardiovascular Disease
DX: I71.4 Abdominal aortic aneurysm, without rupture (principal); I70.1 Atherosclerosis of renal artery; I77.1 Stricture of artery; K55.019 Acute (reversible) ischemia of small intestine, extent unspecified; K74.60 Unspecified cirrhosis of liver; N28.1 Cyst of kidney, acquired; N20.0 Calculus of kidney; K57.30 Diverticulosis of large intestine without perforation or abscess without bleeding
CPT/HCPCS: 74174; Q9967

== ENCOUNTER 2020-08-25 11:16 | Emergency (ER) | payer MEDICARE, MEDICAID ==
[2020-08-25] MEDS ORDERED: Nitroglycerin 2% Ointment 1 INCH/1 GM Packet ONE (11:42)
[2020-08-25 11:44] LABS: #Eosinphils 0.4 thou/uL (0.0-0.7); #Lymphocytes 1.3 thou/uL (1.20-3.40); #Monocytes 0.7 thou/uL (0.11-0.59); #Neutrophils 4.5 thou/uL (1.40-6.50); %Basophils 0.3 % (0.0-1.0); %Eosinophils 5.5 % (0.0-10.0); %Lymphocytes 18.8 % (21.0-51.0); %Monocytes 9.9 % (0.0-10.0); %Neutrophils 65.5 % (42.0-75.0); Hemoglobin 13.8 g/dL (14.0-18.0); Mean Corpuscular HGB CONC 34.9 g/dL (32.0-36.0); Mean Corpuscular Hemoglobin 35.8 pg (27.0-31.0); Mean Platelet Volume 9.2 fL (7.4-10.4); Platelet Count 133 thou/uL (130-400); RBC Distribution Width 13.5 % (11.5-14.5); Red Blood Cell (RBC) Count 3.85 mill/uL (4.70-6.10); White Blood Cell (WBC) Count 6.9 thou/uL (4.8-10.8)
[2020-08-25 12:00] LABS: ALT (SGPT) 19 U/L (8-55); AST (SGOT) 16 U/L (5-34); Alkaline Phosphatase 128 U/L (40-110); Anion Gap 16 mmol/L (10-20); BUN (Urea Nitrogen) 65 mg/dL (8.4-25.7); Bilirubin, Total 0.8 mg/dL (0.2-1.2); CK (CPK) 35 U/L (30-200); Calc. Creatinine Clearance 0 mL/min (70-130); Calcium 9.9 mg/dL (7.8-10.44); Carbon Dioxide 16 mmol/L (23-31); Chloride 109 mmol/L (98-107); Globulin 2.8 g/dL (2.4-3.5); Glucose 117 mg/dL (83-110); Lipase 17 U/L (8-78); Potassium 5.3 mmol/L (3.5-5.1); Protein, Total 6.8 g/dL (5.8-8.1); Sodium 136 mmol/L (136-145)
[2020-08-25 13:16] LABS: Bacteria/HPF None Seen HPF (None Seen); Bilirubin Negative (Negative); Blood, Urine Negative (Negative); Clarity Clear (Clear); Glucose, Urine (Dipstick) Normal (Negative); Ketone, Urine Negative (Negative); Leukocyte 25 Leu/uL (Negative); Nitrite Negative (Negative); Protein, Urine (Dipstick) 10 mg/dL (Neg-Trace); RBC/HPF 0-3 HPF (0-3); Specific Gravity, Urine 1.017 (1.002-1.036); Squamous Epithelial None Seen HPF (0-3); Urobilinogen Normal mg/dL (Less than 2); WBC/HPF 0-3 HPF (0-3)
== END 2020-08-25 13:50 | disposition home or self-care (01) ==
LOC: ERS 11:16
DX: R53.1 Weakness (principal); I13.0 Hypertensive heart and chronic kidney disease with heart failure and stage 1 through stage 4 chronic kidney disease, or unspecified chronic kidney disease; I50.9 Heart failure, unspecified; N18.9 Chronic kidney disease, unspecified; I48.91 Unspecified atrial fibrillation; J44.9 Chronic obstructive pulmonary disease, unspecified; I42.9 Cardiomyopathy, unspecified; F17.210 Nicotine dependence, cigarettes, uncomplicated; Z79.82 Long term (current) use of aspirin; Z79.899 Other long term (current) drug therapy
CPT/HCPCS: 36415; 71045; 80053; 81003; 81015; 82550; 83690; 83880; 84443; 84484; 85025; 93005

== ENCOUNTER 2021-07-11 15:10 | Outpatient (CLI) | payer MEDICARE, MEDICAID | END 2021-07-11 15:11 | disposition home or self-care (01) | LOC: BICRAD 15:10 | PROVIDERS: ATTEND Family Medicine | DX: J44.1 Chronic obstructive pulmonary disease with (acute) exacerbation (principal) | CPT/HCPCS: 71046 ==